=== PATIENT | female | born 1980 | race Caucasian/White ===

== ENCOUNTER 2021-01-17 14:35 | Inpatient (IN) ==
[2021-01-17 15:21] LABS: Basophils % 0.4 %; Eosinophils # 0.1 K/mcL (0.0-0.6); Eosinophils % 1.3 %; Hematocrit 39.1 % (35.3-44.9); Hemoglobin 12.7 g/dL (11.5-15.4); Immature Granulocytes % 0.2 % (0-4); Lymphocytes # 2.4 K/mcL (0.6-4.6); Mean Corpuscular HGB Conc 32.5 g/dL (31.6-35.5); Mean Platelet Volume 10.1 fL (9.4-12.4); Monocytes # 1.2 K/mcL (0.0-1.3); Monocytes % 14.7 %; Neutrophils # 4.6 K/mcL (1.6-8.9); Platelet Count 331 K/mcL (140-400); Red Blood Count 4.89 M/mcL (3.82-4.97); Segmented Neutrophils % 54.4 %; White Blood Count 8.4 K/mcL (4.3-11.1)
[2021-01-17 15:42] LABS: Estimated Average Glucose 117 mg/dl; Hemoglobin A1C 5.7 %
[2021-01-17 15:45] LABS: Acetaminophen < 10 mcg/mL (10-20); BUN/Creatinine Ratio 19 (6-26); Blood Urea Nitrogen 16 mg/dL (6-20); Calcium 9.7 mg/dL (8.6-10.3); Carbon Dioxide 26 mEq/L (23-29); Chloride 102 mEq/L (98-107); Chol/HDL Ratio 1.9 (0-4.9); Cholesterol 176 mg/dL (< 200); Ethanol < 10 mg/dL (Less than 10); Glucose 79 mg/dL (70-105); HDL Cholesterol 94 mg/dL (40-59); LDL Cholesterol,Calculated 65 mg/dL (< 100); Osmolality,Calculated 286 (280-300); Potassium 3.6 mEq/L (3.5-5.1); Salicylate < 2.5 mg/dL (15.0-30.0); Sodium 138 mEq/L (136-145); Triglycerides 87 mg/dL (< 150); eGFR For African Americans > 60 (> 60); eGFR For Non-African Americans > 60 (> 60)
[2021-01-17 15:56] LABS: Bilirubin,Urine Negative (Negative); Blood,Urine Moderate (Negative); Calcium Oxalate Crystals,Urine Present per hpf; Clarity,Urine Turbid (Clear); Color,Urine Yellow (Yellow); Glucose,Urine (UA) Normal (Normal); Hyaline Casts,Urine Moderate per lpf (None Seen); Ketones,Urine Negative (Negative); Leukocyte Esterase,Urine Negative (Negative); Mucus,Urine Many per lpf (None-Few); Nitrite,Urine Negative (Negative); Protein,Urine 50 mg/dL (Neg-Trace); RBC,Urine 0-3 per hpf (0-3); Renal Epithelial Cells,Urine Few per hpf (None-Few); Specific Gravity,Urine > 1.030 (1.010-1.025); Squamous Epithelial Cell,Urine Few per hpf (None-Few); WBC,Urine 0-3 per hpf (0-3)
[2021-01-17 16:06] LABS: Amphetamine Screen,Urine Positive ng/mL (Cutoff=1000); Barbiturate Screen,Urine Negative ng/mL (Cutoff=200); Benzodiazepines Screen,Urine Negative ng/mL (Cutoff=200); Cannabinoid Screen,Urine Positive ng/mL (Cutoff = 50); Cocaine Screen,Urine Negative ng/mL (Cutoff= 300); Opiate Screen,Urine Negative ng/mL (Cutoff=300); Phencyclidine Screen,Urine Negative ng/mL (Cutoff=25)
[2021-01-17 19:42] LABS: Influenza A PCR Negative (Negative); Influenza B PCR Negative (Negative); Resp. Syncytial Virus PCR Negative (Negative)
[2021-01-17 19:43] LABS: SARS-CoV-2 by PCR (In House) Negative (Negative)
[2021-01-17] MEDS ORDERED: Mag Hydrox/Al Hydrox/Simeth 30 ML UDC PO PRN (20:04)
[2021-01-17] MEDS ORDERED: Ibuprofen 400 MG TABLET PO PRN (20:04)
[2021-01-17] MEDS ORDERED: *HR* LORazepam 2 MG/ML VIAL IM PRN (20:04)
[2021-01-17] MEDS ORDERED: haloperidoL 5 MG TABLET PO PRN (20:04)
[2021-01-17] MEDS ORDERED: *HR* LORazepam 1 MG TABLET PO PRN (20:04)
[2021-01-17] MEDS ORDERED: Haloperidol Lactate 5 MG/ML VIAL IM PRN (20:04)
[2021-01-17] MEDS ORDERED: Acetaminophen 325 MG TABLET PO PRN (20:04)
[2021-01-17] MEDS: risperiDONE 1 MG TABLET PO SCH (22:48)
[2021-01-17] MEDS: MOM Conc 10 ML UD.LIQ PO PRN (22:48)
[2021-01-17] MEDS: traZODone 50 MG TABLET PO PRN (22:48)
[2021-01-18] MEDS: risperiDONE 1 MG TABLET PO SCH ×2 (09:02→20:41)
[2021-01-18] MEDS: Psyllium 1 PACKET POWD.PACK PO SCH ×2 (17:28→20:41)
[2021-01-18] MEDS: hydrOXYzine pamoate 25 MG CAPSULE PO PRN (20:41)
[2021-01-18] MEDS: traZODone 50 MG TABLET PO PRN (20:41)
[2021-01-19] MEDS: risperiDONE 1 MG TABLET PO SCH ×2 (08:34→20:24)
[2021-01-19] MEDS: Psyllium 1 PACKET POWD.PACK PO SCH ×3 (08:34→20:24)
[2021-01-19] MEDS: MOM Conc 10 ML UD.LIQ PO PRN (16:44)
[2021-01-19] MEDS: traZODone 50 MG TABLET PO PRN (20:24)
[2021-01-19] MEDS: hydrOXYzine pamoate 25 MG CAPSULE PO PRN (20:24)
[2021-01-20] MEDS: Psyllium 1 PACKET POWD.PACK PO SCH (08:24)
[2021-01-20] MEDS: risperiDONE 1 MG TABLET PO SCH (08:24)
[2021-01-20 10:00] VITALS: BP 103/68; PULSE 84; TEMP 97.6; O2SAT 99
[2021-01-20] MEDS ORDERED: FLU Vac QV 21-22 (6Month+)/PF 0.5 ML SYRINGE IM ONE (11:32)
== END 2021-01-20 12:45 | disposition home or self-care (01) | DRG 885 ==
LOC: EMEROOARM 14:35 → 1ANU 21:11
PROVIDERS: ADMIT Psychiatry & Neurology Psychiatry; ATTEND Psychiatry & Neurology Psychiatry